=== PATIENT | male | born 1995 | race Caucasian/White ===

== ENCOUNTER 2019-07-27 03:10 | Emergency (ER) | payer OTHER ==
[~2019-07-27] VITALS: Ht 172.7 cm; Wt 79.5 kg
[2019-07-27 09:45] VITALS: BP 108/77; PULSE 62; TEMP 97.4
== END 2019-07-27 10:00 | disposition home or self-care (01) ==
LOC: COL.ER 03:10 → EDBD 03:11 → COL.ER 03:11
DX: F10.129 Alcohol abuse with intoxication, unspecified (principal); Y90.8 Blood alcohol level of 240 mg/100 ml or more
CPT/HCPCS: J2405; J7030